=== PATIENT | female | born 1990 | race Caucasian/White ===

== ENCOUNTER 2018-01-11 23:00 | Inpatient (IN) | payer OTHER ==
[2018-01-11 23:42] LABS: APPEARANCE,URINE CLEAR; BILIRUBIN,URINE NEGATIVE (NEGATIVE); COLOR,URINE STRAW; GLUCOSE, URINE NEGATIVE (NEGATIVE); KETONES,URINE NEGATIVE (NEGATIVE); LEUKOCYTE ESTERASE,URINE NEGATIVE (NEGATIVE); NITRITE,URINE NEGATIVE (NEGATIVE); PROTEIN,URINE NEGATIVE (NEGATIVE); URINE SPECIFIC GRAVITY 1.005; UROBILINOGEN,URINE NEGATIVE mg/dL (<2.0)
[2018-01-11] MEDS ORDERED: RINGERS SOLUTION,LACTATED 1,000 ML IV PRN (23:52)
[2018-01-11] MEDS ORDERED: RINGERS SOLUTION,LACTATED 1,000 ML IV ONE (23:52)
[2018-01-11 23:57] LABS: ABSOLUTE LYMPHOCYTES (AUTO) 1.8 10^3/uL (0.5-4.7); ABSOLUTE MONOCYTES (AUTO) 0.9 10^3/uL (0.1-1.4); BASOPHILS % (AUTO) 0.2 % (0-2); EOSINOPHILS % (AUTO) 0.2 % (0-6); LYMPHOCYTES % (AUTO) 11.4 % (13-45); MEAN CORPUSCULAR HEMOGLOBIN 30.3 pg (27.0-33.4); MEAN CORPUSCULAR HGB CONC 34.3 g/dL (32.0-36.0); MEAN CORPUSCULAR VOLUME 88 fl (80-97); MONOCYTES % (AUTO) 5.9 % (3-13); PLATELET COUNT 188 10^3/uL (150-450); RED BLOOD COUNT 3.62 10^6/uL (3.72-5.28); RED CELL DISTRIBUTION WIDTH 15.1 % (11.5-14.0); SEGMENTED NEUTROPHILS % (AUTO) 82.3 % (42-78); TOTAL CELLS COUNTED % (AUTO) 100 %; WHITE BLOOD COUNT 15.8 10^3/uL (4.0-10.5)
[2018-01-12 00:01] LABS: URINE AMPHETAMINES SCREEN NEGATIVE; URINE BARBITURATES SCREEN NEGATIVE; URINE BENZODIAZEPINES SCREEN NEGATIVE; URINE COCAINE SCREEN NEGATIVE; URINE MARIJUANA (THC) SCREEN NEGATIVE; URINE METHADONE SCREEN NEGATIVE; URINE PHENCYCLIDINE SCREEN NEGATIVE
--- NOTE | 2018-01-12 02:08 | Admission Physical ---
Datetime Report Generated by CPN: 01/12/2018 02:07 CURRENT ADMISSION Chief Complaint: Uterine Contractions Indication for Induction: Not Applicable Admit Impression : Term, Intrauterine Admit Plan: Initiate Labor Protocol ALLERGIES Medication Allergies: No Medication Allergies: No Known Allergies (01/11/2018) Latex: No Latex Allergies OBSTETRICAL HISTORY EDC: 01/16/2018 00:00 : 2 Para: 1 Term: 1 : 1 SAB: 0 IAB: 0 Ectopic: 0 Livin Cesareans: 0 VBACs: 0 Multiple Births: 0 Gestational Diabetes: No Rh Sensitization: No Incompetent Cervix: No LES: No Infertility: No ART Treatment: No Uterine Anomaly: No IUGR: No Hx Previous C/S: No Macrosomia: No Hx Loss/Stillborn: No PIH: No Hx : No Placenta Previa/Abruption: No Depression/PP Depression: No PTL/PROM: No Post Hemorrhage: No Current Procedures: Ultrasound; NST Obstetrical History Comments: G1- 38 weeks baby girl 7lbs 5oz G2- current SEE RECORDS Alcohol: No Marijuana : No Cocaine: No Other Illicit Drugs: No Cigarettes: Never Smoker. [id number] MEDICAL HISTORY Diabetes: No Blood Transfusion: No Pulmonary Disease (Asthma, TB): No Breast Disease: No Hypertension: No Traveling Storekeeper Surgery: No Heart Disease: No Hosp/Surgery: No Autoimmune Disorder: No Anesthetic Complications: No Kidney Disease: No Abnormal Pap Smear: No Neuro/Epilepsy: No Psychiatric Disorders: No Other Medical Diseases: No Hepatitis/Liver Disease: No Significant Family History: No Varicosities/Phlebitis: No Trauma/Violence : No Thyroid Dysfunction: No INFECTIOUS HISTORY Gonorrhea: No Genital Herpes: No Chlamydia: No Tuberculosis: No Syphilis: No Hepatitis: No HIV/AIDS Exposure: No Rash or Viral Illness: No HPV: No PHYSICAL EXAM General: Normal HEENT: Normal Neurologic: Normal Thyroid: Normal Heart: Normal Lungs: Normal Breast: Deferred Back: Normal Abdomen: Normal Genitourinary Exam: Normal Extremities: Normal DTRs: Normal Pelvic Type: Adequate FETUS A EGA: 39.3 Monitoring: External US Decelerations: None PLANS FOR LABOR AND DELIVERY Labor and Delivery: None Pain Management: None Feeding Preference: Breast Benefit of Breast Feed Discussed: Yes Circumcision: Yes INFORMED CONSENT Signature: with User ID: [email or web address]
[2018-01-12] MEDS ORDERED: LIDOCAINE 1% INJ-PF (10 MG/ML) 30 ML SDV ONE (07:21)
[2018-01-12] MEDS ORDERED: MISOPROSTOL 0.2 MG TABLET ONE (07:21)
--- NOTE | 2018-01-12 08:33 | L&D Progress Notes ---
PROGRESS NOTES Datetime Report Generated by CPN: 01/12/2018 08:32 PROGRESS NOTE Impression: Arrest of Dilatation/Descent Procedures: Artificial ROM Plan: Continue Present Management Comment: pt doing well, denies need for pain mgmt agrees to AROM VAGINAL EXAM Dilatation: 6 Effacement: 70 Station: -1 MEMBRANES Membranes: Ruptured Amniotic Fluid Color: Meconium, Light FETUS A FHR - Baseline: 130 Monitoring: External US Variability: Moderate 6-25bpm Accelerations: 15X15 Decelerations: None : 39.4 SIGNATURE SIGNATURE: [id number];[id number] SIGNATURE: [id number] Assignment: Kathleen Lopez MD Signature: with User ID: [email or web address] : with User ID: [email or web address]
[2018-01-12] MEDS ORDERED: OXYTOCIN/NORMAL SALINE 20 UNIT/1,000 ML RTUINJ ONE (09:16)
--- NOTE | 2018-01-12 10:56 | Warning Signs in Babies ---
VOD Warning Signs Datetime Report Generated by [facility]: 01/12/2018 10:56 VOD#608 -Warning Signs in Babies: Viewed with Parent(s)/Family (01/11/2018 23:16:Dex Narayan RN)
[2018-01-12] MEDS ORDERED: BENZOCAINE/MENTHOL AEROSOL SPRAY 56 ML TOP PRN (12:32)
[2018-01-12] MEDS ORDERED: OXYTOCIN/NORMAL SALINE 20 UNIT/1,000 ML RTUINJ IV PRN (12:32)
[2018-01-12] MEDS ORDERED: DIBUCAINE 1% OINTMENT 28 GM TP PRN (12:32)
[2018-01-12] MEDS ORDERED: ZOLPIDEM TARTRATE 5 MG TABLET PO PRN (12:32)
[2018-01-12] MEDS ORDERED: MEASLES,MUMPS&RUBELLA VACC/PF 0.5 ML VIAL SUBCUT PRN (12:32)
[2018-01-12] MEDS ORDERED: DIPH/PERTUSS(ACELL)/TETANUS VAC/PF 0.5 ML SYR (>=10YO) IM PRN (12:32)
[2018-01-12] MEDS ORDERED: IBUPROFEN 800 MG TABLET ONE (13:36)
[2018-01-12] MEDS: IBUPROFEN 800 MG TABLET PO SCH ×2 (14:13→21:40)
[2018-01-12] MEDS: FERROUS SULFATE 325 MG TABLET PO SCH (17:38)
[2018-01-12] MEDS: DOCUSATE SODIUM 100 MG CAPSULE PO SCH (17:38)
[2018-01-13] MEDS: IBUPROFEN 800 MG TABLET PO SCH ×3 (06:19→21:22)
--- NOTE | 2018-01-13 07:46 | Delivery Summary ---
Del Sum A-C Datetime Report Generated by CPN: 01/13/2018 07:46 DELIVERY PERSONNEL DELIVERY PERSONNEL: [id number] Delivery Doctor:: Lauren Acosta CNM Labor and Delivery Nurse:: Quan Narayan RNart educator Nurse:: Doris Lopez RN Nursery Nurse:: Alem Ball RN Nursery Nurse:: Silvana Bashir RN Suit Attendant/LIBRARIAN HELPER: She Blancas CST Suit Attendant/LIBRARIAN HELPER: Kendyallen Anand, LIBRARIAN HELPER II MATERNAL INFORMATION Delivery Anesthesia: None Medications After Delivery: Pitocin Bolus-Please Comment Meds After Delivery Comment: Pitocin 20 units in1 L NS bolusing per order Maternal Complications: Precipitous Labor (<3hrs) Provider Comments: SVDVM over intact perineum, Lt labial lac extended to vaginal tissue 2*. CAT, shoulders/body delivered easily and placed on mothers abd. Spont cry. Cord clamped and cut per FOB, 3VC noted. Placenta spont via ayoub, FF imediately, bleeding stabilized. Mother and stable. LABOR SUMMARY EDC: 01/16/2018 00:00 No. Babies in Womb: 1 Attempted: No Labor Anesthesia: None LABOR INFORMATION Reason for Induction: Not Applicable Onset of Labor: 01/12/2018 08:19 Complete Dilatation: 01/12/2018 09:31 Oxytocin: N/A Group B Beta Strep: Negative Antibiotics # of Doses: 0 Antibiotics Time of Last Dose: N/A Name of Antibiotic Given: N/A Steroids Given: None Reason Steroids Not Administered: Not Applicable MEMBRANES Membranes Rupture Method: Artificial Rupture of Membranes: 01/12/2018 08:19 Length of Rupture (hr): 1.42 Amniotic Fluid Color: Light Meconium Amniotic Fluid Amount: Moderate Amniotic Fluid Odor: Normal STAGES OF LABOR Stage 1 hr: 1 Stage 1 min: 12 Stage 2 hr: 0 Stage 2 min: 13 Stage 3 hr: 0 Stage 3 min: 13 Total Time in Labor hr: 1 Total Time in Labor min: 38 VAGINAL DELIVERY Episiotomy: None Laceration #1: Vaginal Laceration Extension #1: Second Degree Other Laceration: Left Labial Laceration Repair: Yes Laceration Repair Note: 1% lidocaine and 3.0 chromic, repaired in usual fashion Sponge Count Correct: Yes Sharps Count Correct: Yes CSECTION DELIVERY Primary Indication: N/A Secondary Indication: N/A CSection Incidence: N/A Labor: N/A Elective: N/A CSection Incision: N/A BABY A INFORMATION Delivery Date/Time: 01/12/2018 09:44 Method of Delivery: Vaginal Born in Route : No : N/A Forceps: N/A Vacuum Extraction: N/A Shoulder Dystocia : No PRESENTATION/POSITION BABY A Presentation: Cephalic Cephalic Presentation: Vertex Vertex Position: Right Occipital Anterior Breech Presentation: N/A PLACENTA INFORMATION BABY A Placenta Delivery Time : 01/12/2018 09:57 Placenta Method of Delivery: Spontaneous Placenta Status: Delivered SCORES BABY A Heart Rate 1 min: >100 bpm Resp Effort 1 min: Good Cry Reflex Irritability 1 min: Cough or Sneeze or Pulls Away Muscle Tone 1 min: Active Motion Color 1 min: Blue/Pale Resuscitation Effort 1 min: Tactile Stimulation SCORE 1 MIN: 8 Heart Rate 5 min: >100 bpm Resp Effort 5 min: Good Cry Reflex Irritability 5 min: Cough or Sneeze or Pulls Away Muscle Tone 5 min: Active Motion Color 5 min: Body [place], Extremities Blue Resuscitation Effort 5 min: N/A SCORE 5 MIN: 9 INFANT INFORMATION BABY A Gestational Age at Delivery: 39.3 Gestational Status: Full Term- 39- 40.6 Weeks Infant Outcome : Liveborn Infant Condition : Stable Infant Sex: Male IDENTIFICATION BABY A Infant Verification Date/Time: 01/12/2018 10:43 ID Band Number: [id number] Mother's Name Verified: Yes Infant RN Verifying Infant: Quan Narayan RN Additional Verifying Personnel: Networked [employer] RN WEIGHT/LENGTH BABY A Infant Birthweight (gm): 3710 Weight (lb): 8 Weight (oz): 3 Length (in): 20.50 Length (cm): 52.07 CORD INFORMATION BABY A No. Cord Vessels: 3 Nuchal Cord : N/A Cord Blood Taken: Yes-For Storage (Mom's Blood type +) Infant Suction: Mouth ASSESSMENT BABY A Infant Complications: None Physical Findings at Delivery: Within Normal Limits Respirations: Appears Normal Skin to Skin: Yes Skin to Skin Time (min): 60 Mobile Sales Technician/ALS Called : No Care By: Keke Ball, RN, RMoreno Bashir, RN Transferred To: Remains with Mother BABY B INFORMATION : N/A SIGNATURES Assignment: Kathleen Lopez MD Signature: with User ID: [email or web address] : with User ID: [email or web address] : I was personally available for consultation and serving as supervising physician for the MLP. : I was personally available for consultation and serving as supervising physician for the MLP.
[2018-01-13 08:22] LABS: HEMATOCRIT 31.6 % (36.0-47.0); HEMOGLOBIN 10.7 g/dL (12.0-15.5); MEAN CORPUSCULAR HGB CONC 33.8 g/dL (32.0-36.0); MEAN CORPUSCULAR VOLUME 89 fl (80-97); PLATELET COUNT 191 10^3/uL (150-450); RED BLOOD COUNT 3.56 10^6/uL (3.72-5.28); RED CELL DISTRIBUTION WIDTH 14.7 % (11.5-14.0); WHITE BLOOD COUNT 16.8 10^3/uL (4.0-10.5)
[2018-01-13] MEDS: SENNOSIDES/DOCUSATE 8.6-50 MG 1 EACH TABLET PO SCH (09:02)
[2018-01-13] MEDS: FERROUS SULFATE 325 MG TABLET PO SCH ×2 (09:02→17:43)
[2018-01-13] MEDS: DOCUSATE SODIUM 100 MG CAPSULE PO SCH ×2 (09:02→17:42)
[2018-01-13] MEDS: PRENATAL VITAMIN W DHA CAPSULE PO SCH (09:02)
--- NOTE | 2018-01-13 10:01 | PDOC PROGRESS REPORT ---
Subjective-OB Progress Note for:: 01/13/18 Subjective: reports well, bleeding slowing, pain controlled with current meds ; denies needs Physical Exam (OB) Vital Signs: Temp Pulse Resp BP Pulse Ox 97.9 F 86 17 112/72 96 01/13/18 07:37 01/13/18 07:37 01/13/18 07:37 01/13/18 07:37 01/13/18 07:37 Intake & Output 01/12/18 01/13/18 01/14/18 06:59 06:59 06:59 Weight 79.3 kg - Abdomen Description: Soft Hernia Present: No Fundal Description: Firm, Midline Fundal Height: u/u - u/2 - Abdominal Tenderness: Nontender - Extremities Lower extremities: Brenda's sign - neg Calf: Normal, Nontender Objective-Diagnostic Laboratory: 01/13/18 08:13 01/13/18 08:13 WBC 16.8 H RBC 3.56 L Hgb 10.7 L Hct 31.6 L MCV 89 MCH 30.0 MCHC 33.8 RDW 14.7 H Plt Count 191 Assessment and Plan(PN) - Assessment and Plan (1) Vaginal delivery Is this a current diagnosis for this admission?: Yes - Time Spent with Patient Time with patient: Less than 15 minutes Medications reviewed and adjusted accordingly: Yes - Disposition Anticipated Discharge: Home Within: within 24 hours
[2018-01-13] MEDS: SERTRALINE HCL 50 MG TABLET PO SCH (14:20)
[2018-01-14] MEDS: IBUPROFEN 800 MG TABLET PO SCH ×2 (06:00→14:09)
[2018-01-14 08:00] VITALS: BP 118/73
--- NOTE | 2018-01-14 09:55 | PDOC DISCHARGE SUMMARY ---
Final Diagnosis Discharge Date: 01/14/18 - Final Diagnosis (1) Obstetrical laceration, second degree Is this a current diagnosis for this admission?: Yes (2) Vaginal delivery Is this a current diagnosis for this admission?: Yes Discharge Data - Discharge Medication Home Medications: Pnv,Calcium 72/Iron,Carb/Folic [ Plus Iron Tablet] 1 each PO DAILY 11/04 Calcium Carbonate [Calcium] 500 mg PO DAILY 01/11/18 Sertraline HCl [Zoloft 50 mg Tablet] 50 mg PO DAILY 01/11/18 Reason(s) for Admission: Onset of Labor Procedures: NST Intrapartum Procedure(s): Spontaneous Vaginal Delivery Complication(s): Laceration-Vaginal, Laceration-Labial Laceration-Degree: 2nd - Diagnosis Test Laboratory: Temp Pulse Resp BP Pulse Ox 98.3 F 81 18 118/73 99 01/14/18 07:52 01/14/18 07:52 01/14/18 07:52 01/14/18 07:52 01/14/18 07:52 01/11/18 01/11/18 01/13/18 23:09 23:43 08:13 RBC 3.62 L 3.56 L Hgb 11.0 L 10.7 L Hct 32.0 L 31.6 L Urine Opiates Screen NEGATIVE - Discharge information/Instructions Discharge Activity: Balance Activity w/Rest, Pelvic Rest Discharge Diet: Regular Disposition: HOME, SELF-CARE Follow up with: [facility] in: 4, Weeks
[2018-01-14] MEDS: DOCUSATE SODIUM 100 MG CAPSULE PO SCH (10:42)
[2018-01-14] MEDS: FERROUS SULFATE 325 MG TABLET PO SCH (10:42)
[2018-01-14] MEDS: SENNOSIDES/DOCUSATE 8.6-50 MG 1 EACH TABLET PO SCH (10:42)
[2018-01-14] MEDS: PRENATAL VITAMIN W DHA CAPSULE PO SCH (10:43)
[2018-01-14] MEDS: SERTRALINE HCL 50 MG TABLET PO SCH (13:41)
== END 2018-01-14 17:13 | disposition home or self-care (01) | DRG 775 ==
LOC: LC 23:00 → LR 23:30 → 2S 01-12 12:20
PROVIDERS: ADMIT Obstetrics & Gynecology; ATTEND Obstetrics & Gynecology
PROC: 10E0XZZ Delivery of Products of Conception, External Approach (ICD-10-PCS; principal; 2018-01-12)
PROC: 0KQM0ZZ Repair Perineum Muscle, Open Approach (ICD-10-PCS; 2018-01-12)
DX: O62.3 Precipitate labor (principal); O70.1 Second degree perineal laceration during delivery; Z3A.39 39 weeks gestation of pregnancy; Z37.0 Single live birth
CPT/HCPCS: 36415; 80307; 81005; 85025; 85027; 86592; 86850; 86900; 86901; J2590; J3490

== ENCOUNTER 2018-02-03 13:02 | Day surgery (SDC) | payer OTHER ==
[2018-02-03] MEDS ORDERED: CEFAZOLIN 1 GM/D5W RTU 1 GM/50 ML RTUPB IV PRN (13:24)
[2018-02-03] MEDS ORDERED: DEXTROSE 5%-LACTATED RINGERS 1,000 ML IV PRN (13:25)
[2018-02-03] MEDS ORDERED: FAMOTIDINE INJ/PF 20 MG/2 ML SDV IV ONE (14:07)
[2018-02-03] MEDS ORDERED: METOCLOPRAMIDE HCL INJ/PF 10 MG/2 ML SDV ONE (14:13)
[2018-02-03] MEDS ORDERED: LIDOCAINE 0.5% INJ-PF (5 MG/ML) 50 ML SDV ONE (14:51)
[2018-02-03] MEDS ORDERED: BUPIVACAINE HCL 0.25 % INJ/PF (2.5 MG/1 ML) 30 ML VIAL ONE (14:51)
[2018-02-03] MEDS ORDERED: LIDOCAINE 2% INJ-PF (20 MG/ML) 10 ML AMPUL ONE (15:06)
[2018-02-03] MEDS ORDERED: FENTANYL CITRATE INJ/PF 250 MCG/5 ML AMPULE ONE (15:06)
[2018-02-03] MEDS ORDERED: DEXAMETHASONE SOD PHOSPHATE INJ 4 MG/1 ML VIAL ONE (15:07)
[2018-02-03] MEDS ORDERED: ACETAMINOPHEN 1,000 MG/100 ML RTUPB IV ONE (15:07)
[2018-02-03] MEDS ORDERED: ONDANSETRON HCL INJ/PF 4 MG/2 ML SDV ONE (15:07)
[2018-02-03] MEDS ORDERED: PROPOFOL INJ 200 MG/20 ML VIAL IV ONE (15:07)
[2018-02-03] MEDS ORDERED: MIDAZOLAM 2 MG/2 ML INJ ONE (15:07)
[2018-02-03] MEDS ORDERED: SUCCINYLCHOLINE CHLORIDE INJ 200 MG/10 ML VIAL ONE (15:48)
[2018-02-03] MEDS ORDERED: KETOROLAC TROMETHAMINE INJ/PF 30 MG/1 ML SDV IV PRN (16:11)
[2018-02-03] MEDS ORDERED: KETOROLAC TROMETHAMINE 10 MG TABLET PO PRN (16:11)
[2018-02-03] MEDS ORDERED: ONDANSETRON HCL INJ/PF 4 MG/2 ML SDV IV PRN ×2 (16:11→16:26)
--- NOTE | 2018-02-03 16:16 | Operative Report ---
Operative Report DATE OF SURGERY: 02/03/18 PREOPERATIVE DIAGNOSIS: 1. Large left breast abscess. 2. breast POSTOPERATIVE DIAGNOSIS: Same OPERATION: Incisional drainage, left breast debridement, and packing SURGEON: LUDWIG YANEZ ANESTHESIA: GA TISSUE REMOVED OR ALTERED: Nonviable portions of left breast parenchyma COMPLICATIONS: None ESTIMATED BLOOD LOSS: 25 cc INTRAOPERATIVE FINDINGS: See below PROCEDURE: The patient was seen in the preop holding her then taken to the main operating room where general anesthesia was induced. Left arm was abducted, left breast prepped and draped sterile fashion Surgical plan surgical timeout conducted. A 3 cm incision was made in a curvilinear fashion approximately 8 cm from the nipple at the 3 o'clock position. We immediately got into pus which was cultured and sent for Gram stain sensitivity. We broke up a extensive amount of thick warty loculations occupying approximately 25-35% of the left breast going from the 1 o'clock position to the 5 o'clock position, extending to the retroareolar region. The infection extended down towards the chest wall, and laterally underneath the incision. Lauren clamps were used to break up the parenchyma. Several chunks of nonviable fatty tissue were debrided with pickups and electrocautery. Dissection was admixed with inflamed milk ducts and pockets of undrained milk. It with a liter or 2 of saline. I felt that the degree of debridement, and loculation opening was sufficient. Approximately 18 inches of Betadine soaked Kerlix was packed in the left breast. Dressings applied. Patient tolerated procedure well. She was taken to the recovery room after extubation in stable condition.
[2018-02-03] MEDS ORDERED: FENTANYL CITRATE INJ/PF 100 MCG/2 ML AMPUL IV PRN ×3 (16:26)
[2018-02-03] MEDS ORDERED: DIPHENHYDRAMINE HCL 50 MG/ML VIAL IV PRN (16:26)
[2018-02-03] MEDS ORDERED: OXYCODONE-ACETAMINOPHEN 5-325 MG TABLET PO PRN ×2 (16:26)
[2018-02-03] MEDS ORDERED: MORPHINE SULFATE 10 MG/ML INJ IV PRN (16:26)
[2018-02-03] MEDS ORDERED: MEPERIDINE HCL/PF INJ 25 MG/1 ML DISP.SYRIN IV PRN (16:26)
[2018-02-03] MEDS ORDERED: PROMETHAZINE HCL INJ 25 MG/1 ML VIAL IV PRN ×2 (16:26)
[2018-02-03] MEDS: FENTANYL CITRATE INJ/PF 100 MCG/2 ML AMPUL ONE ×2 (16:30→16:35)
[2018-02-03] MEDS ORDERED: KETOROLAC TROMETHAMINE INJ/PF 30 MG/1 ML SDV ONE (17:02)
[2018-02-04] MEDS: CEFAZOLIN 1 GM/D5W RTU 1 GM/50 ML RTUPB IV SCH ×4 (00:08→22:27)
[2018-02-04] MEDS ORDERED: HYDROMORPHONE HCL INJ/PF 2 MG/ML AMPULE ONE (07:47)
[2018-02-04] MEDS: HYDROMORPHONE HCL INJ/PF 2 MG/ML AMPULE IV PRN (07:49)
[2018-02-05] MEDS: CEFAZOLIN 1 GM/D5W RTU 1 GM/50 ML RTUPB IV SCH (05:34)
[2018-02-05] MEDS: HYDROMORPHONE HCL INJ/PF 2 MG/ML AMPULE IV PRN (06:59)
[2018-02-05 09:11] VITALS: BP 102/66
--- NOTE | 2018-02-05 18:45 | DISCHARGE SUMMARY E ---
Discharge Summary NAME: BLAYNE HEAD : 1990 AGE: 27Y ADMITTED: 02/03/2018 DISCHARGED: 02/05/2018 PROCEDURE DONE: Incision and drainage of large left breast abscess 02/03/2018. SURGEON: Marc Baum MD HOSPITAL COURSE: This 27-year-old female was admitted for abscess of the left breast. The patient is about 3 weeks ago. An incision and drainage of large left breast abscess was done by Dr. Baum on 02/03/2018 under general anesthesia. The patient did well postoperatively. Gram stain of the drainage showed gram positive cocci in clusters. No sensitivity was available on discharge. However, the patient was given a prescription for clindamycin 300 mg p.o. four times daily x10 days. Packing was changed on 02/04/2018 and also on the day of discharge, 02/05/2018, with Iodoform gauze. Packing will be removed in the surgical clinic by Mayra Guido NP, and followup final sensitivity study and culture. The patient is doing well on discharge. DICTATING PHYSICIAN: JASON KOLB M.D. [id number] PHY#: [id number] ID: [id number] JOB#: [id number] ACCT: [id number] cc:Marilee CADE M.D. >
== END 2018-02-05 09:25 | disposition home or self-care (01) ==
LOC: OROUT 13:02 → 2N 17:23 → OROUT 02-05 09:25
PROVIDERS: ATTEND Surgery
DX: N61.1 Abscess of the breast and nipple (principal); Z39.2 Encounter for routine postpartum follow-up; Z39.1 Encounter for care and examination of lactating mother; Z79.899 Other long term (current) drug therapy
CPT/HCPCS: 87070; 87205; 87075; 87077; 87186; 11042; L8000 ×2; J2250; J0690 ×3; J1100; J3010 ×2; J1885 ×2; J2765; J1170 ×2; J0330; J2405; J3490 ×2; J2704; S0028; J0131; 400

== ENCOUNTER 2019-09-21 10:17 | Inpatient (IN) | payer OTHER ==
[2019-09-21 10:46] LABS: APPEARANCE,URINE CLOUDY; BILIRUBIN,URINE NEGATIVE (NEGATIVE); COLOR,URINE YELLOW; GLUCOSE, URINE NEGATIVE (NEGATIVE); KETONES,URINE NEGATIVE (NEGATIVE); LEUKOCYTE ESTERASE,URINE NEGATIVE (NEGATIVE); NITRITE,URINE NEGATIVE (NEGATIVE); PROTEIN,URINE NEGATIVE (NEGATIVE); URINE SPECIFIC GRAVITY 1.014; UROBILINOGEN,URINE NEGATIVE mg/dL (<2.0)
[2019-09-21] MEDS ORDERED: RINGERS SOLUTION,LACTATED 1,000 ML IV PRN (10:52)
[2019-09-21] MEDS ORDERED: RINGERS SOLUTION,LACTATED 1,000 ML IV ONE (10:52)
[2019-09-21 11:09] LABS: URINE AMPHETAMINES SCREEN NEGATIVE; URINE BARBITURATES SCREEN NEGATIVE; URINE BENZODIAZEPINES SCREEN NEGATIVE; URINE COCAINE SCREEN NEGATIVE; URINE MARIJUANA (THC) SCREEN NEGATIVE; URINE METHADONE SCREEN NEGATIVE; URINE PHENCYCLIDINE SCREEN NEGATIVE
[2019-09-21 11:19] LABS: ABSOLUTE LYMPHOCYTES (AUTO) 1.6 10^3/uL (0.5-4.7); ABSOLUTE MONOCYTES (AUTO) 0.7 10^3/uL (0.1-1.4); BASOPHILS % (AUTO) 0.2 % (0-2); EOSINOPHILS % (AUTO) 0.1 % (0-6); HEMATOCRIT 31.1 % (36.0-47.0); HEMOGLOBIN 10.6 g/dL (12.0-15.5); LYMPHOCYTES % (AUTO) 11.1 % (13-45); MEAN CORPUSCULAR HEMOGLOBIN 29.3 pg (27.0-33.4); MEAN CORPUSCULAR HGB CONC 34.2 g/dL (32.0-36.0); MEAN CORPUSCULAR VOLUME 86 fl (80-97); MONOCYTES % (AUTO) 4.7 % (3-13); PLATELET COUNT 196 10^3/uL (150-450); RED BLOOD COUNT 3.63 10^6/uL (3.72-5.28); RED CELL DISTRIBUTION WIDTH 15.1 % (11.5-14.0); SEGMENTED NEUTROPHILS % (AUTO) 83.9 % (42-78); TOTAL CELLS COUNTED % (AUTO) 100 %; WHITE BLOOD COUNT 14.3 10^3/uL (4.0-10.5)
[2019-09-21] MEDS ORDERED: OXYTOCIN/NORMAL SALINE 20 UNIT/1,000 ML RTUINJ IV PRN ×2 (15:38→17:56)
[2019-09-21] MEDS ORDERED: LIDOCAINE 1% INJ-PF (10 MG/ML) 30 ML SDV ONE (15:41)
[2019-09-21] MEDS ORDERED: MISOPROSTOL 0.2 MG TABLET ONE (15:41)
[2019-09-21] MEDS ORDERED: OXYTOCIN 10 UNIT/ML VIAL ONE (15:41)
[2019-09-21] MEDS ORDERED: OXYTOCIN/NORMAL SALINE 20 UNIT/1,000 ML RTUINJ ONE (15:41)
--- NOTE | 2019-09-21 17:32 | Admission Physical ---
Datetime Report Generated by CPN: 09/21/2019 17:32 CURRENT ADMISSION Chief Complaint: Uterine Contractions Indication for Induction: Not Applicable Admit Impression : Term, Intrauterine ; Active Labor; Intact Membranes Admit Plan: Admit to Unit; Initiate Labor Protocol ALLERGIES Medication Allergies: No Medication Allergies: No Known Allergies (09/21/2019) Latex: No Latex Allergies Food Allergies: none Environmental Allergies: none OBSTETRICAL HISTORY EDC: 09/26/2019 00:00 : 3 Para: 2 Term: 2 : 0 SAB: 0 IAB: 0 Ectopic: 0 Livin Cesareans: 0 VBACs: 0 Multiple Births: 0 Gestational Diabetes: No Rh Sensitization: No Incompetent Cervix: No LES: No Infertility: No ART Treatment: No Uterine Anomaly: No IUGR: No Hx Previous C/S: No Macrosomia: No Hx Loss/Stillborn: No PIH: No Hx : No Placenta Previa/Abruption: No Depression/PP Depression: Yes PTL/PROM: No Post Hemorrhage: No Current Procedures: Ultrasound SEE RECORDS Alcohol: No Marijuana : No Cocaine: No Other Illicit Drugs: No Cigarettes: Never Smoker. [id number] MEDICAL HISTORY Diabetes: No Blood Transfusion: No Pulmonary Disease (Asthma, TB): No Breast Disease: Yes Hypertension: No Graduate Nurse Surgery: No Heart Disease: No Hosp/Surgery: Yes Autoimmune Disorder: No Anesthetic Complications: No Kidney Disease: No Abnormal Pap Smear: No Neuro/Epilepsy: No Psychiatric Disorders: No Other Medical Diseases: No Hepatitis/Liver Disease: No Significant Family History: No Varicosities/Phlebitis: No Trauma/Violence : No Thyroid Dysfunction: No Medical History Comments: Depression Breast absess surgery- Feb 2018 INFECTIOUS HISTORY Gonorrhea: No Genital Herpes: No Chlamydia: No Tuberculosis: No Syphilis: No Hepatitis: No HIV/AIDS Exposure: No Rash or Viral Illness: No HPV: No PHYSICAL EXAM General: Normal HEENT: Normal Neurologic: Normal Thyroid: Deferred Heart: Normal Lungs: Normal Breast: Deferred Back: Normal Abdomen: Normal Genitourinary Exam: Normal Extremities: Normal DTRs: Normal Pelvic Type: Adequate Vital Signs: Reviewed VAGINAL EXAM Dilatation: 6 Effacement: 80 Station: -1 Contraction Comments: q 5-6 MEMBRANES Membranes: Intact FETUS A EGA: 39.2 Monitoring: External US FHR- Baseline: 145 Variability: Moderate 6-25bpm Accelerations: 15X15 Decelerations: None FHR Category: Category I Presentation: Vertex Admit Comment: 29yo at 39+2ega presents for active labor and cvx 6cm. GBS negative. H/o Depression. merchandise planner placed. o/w uncomplicated. Doing well. Admit and augment if needed. PLANS FOR LABOR AND DELIVERY Labor and Delivery: None Pain Management: Natural Feeding Preference: Breast Benefit of Breast Feed Discussed: Yes Circumcision: N/A INFORMED CONSENT Informed Consent Obtained: Vaginal Delivery; Risks, Benefits and Alternatives Discussed Signature: with User ID: [email or web address]
[2019-09-21] MEDS ORDERED: ACETAMINOPHEN WITH CODEINE #3 TABLET PO PRN ×2 (17:56)
[2019-09-21] MEDS ORDERED: MAGNESIUM HYDROXIDE SUSP 30 ML UDCUP PO PRN (17:56)
[2019-09-21] MEDS ORDERED: DIPH/PERTUSS(ACELL)/TETANUS VAC/PF 0.5 ML SYR (>=10YO) IM PRN (17:56)
[2019-09-21] MEDS ORDERED: NA PHOS,M-B/NA PHOS,DI-BA (ADULT) 133 ML ENEMA PR PRN (17:56)
[2019-09-21] MEDS ORDERED: BENZOCAINE/MENTHOL AEROSOL SPRAY 56 ML TOP PRN (17:56)
[2019-09-21] MEDS ORDERED: GLYCERIN/WITCH HAZEL LEAF 1 EACH MED..WIPE TP PRN (17:56)
[2019-09-21] MEDS ORDERED: PROMETHAZINE HCL 25 MG TABLET PO PRN (17:56)
[2019-09-21] MEDS ORDERED: MEASLES,MUMPS&RUBELLA VACC/PF 0.5 ML VIAL SUBCUT PRN (17:56)
[2019-09-21] MEDS ORDERED: ZOLPIDEM TARTRATE 5 MG TABLET PO PRN (17:56)
[2019-09-21] MEDS ORDERED: PSEUDOEPHEDRINE HCL 30 MG TABLET PO PRN (17:56)
[2019-09-21] MEDS ORDERED: ACETAMINOPHEN 325 MG TABLET PO PRN (17:56)
[2019-09-21] MEDS ORDERED: DIPHENHYDRAMINE HCL 25 MG CAPSULE PO PRN (17:56)
[2019-09-21] MEDS ORDERED: DIBUCAINE 1% OINTMENT 28 GM TP PRN (17:56)
[2019-09-21] MEDS ORDERED: PROMETHAZINE HCL INJ 25 MG/1 ML VIAL IV PRN (17:56)
[2019-09-21] MEDS ORDERED: PROMETHAZINE HCL 25 MG SUPP.RECT PR PRN (17:56)
--- NOTE | 2019-09-21 18:37 | Delivery Summary ---
Del Sum A-C Datetime Report Generated by CPN: 09/21/2019 18:37 DELIVERY PERSONNEL DELIVERY PERSONNEL: [id number] Delivery Doctor:: Yenni Arzate CNM Labor and Delivery Nurse:: Brooke Peterson RNsupervisor hanging and trimming Nurse:: Sadi Alvarenga RN Automation Machine Operator:: Fabiola Anderson RN Marklogic Developer/ASSOCIATE PROFESSOR OF LITERATURE: She Blancas, CRISTINO Marklogic Developer/ASSOCIATE PROFESSOR OF LITERATURE: ZToler,ANIMAL SURGEON MATERNAL INFORMATION Delivery Anesthesia: None Medications After Delivery: Pitocin Bolus-Please Comment; Pitocin Drip 20 Units/1000ml NSS Meds After Delivery Comment: 20 units/1000ml NS Estimated Blood Loss (ml): 200 Delivery QBL Comment: Unable to obtain QBL Maternal Complications: None Provider Comments: Called to Room 4-patient calling out with uc's and pushing uncontrollably. Membranes intact and bulging. AROM w clear fluid. viable infant in vertex OA to YOLIE en caul at 1701. Membranes removed from face. Nuchal cord x1, reduced. Spontaneous respirations and cry. Apgars 8-9. 3 vessel cord. Cord clamped x2, after 2 min delay, then cut by FOB. Placenta, membranes, and cord expelled at 1710, French presentation, intact. Repair of left labia into vagin repaired as above. LABOR SUMMARY EDC: 09/26/2019 00:00 No. Babies in Womb: 1 Attempted: No Labor Anesthesia: None LABOR INFORMATION Reason for Induction: Not Applicable Onset of Labor: 09/21/2019 10:50 Complete Dilatation: 09/21/2019 16:56 Oxytocin: Augmentation Group B Beta Strep: Negative Antibiotics # of Doses: n/a Antibiotics Time of Last Dose: n/a Name of Antibiotic Given: n/a Steroids Given: None Reason Steroids Not Administered: Not Applicable Other Reason Not Administered: n/a MEMBRANES Membranes Rupture Method: Artificial Rupture of Membranes: 09/21/2019 17:00 Length of Rupture (hr): 0.02 Amniotic Fluid Color: Clear Amniotic Fluid Amount: Small Amniotic Fluid Odor: Normal STAGES OF LABOR Stage 1 hr: 6 Stage 1 min: 6 Stage 2 hr: 0 Stage 2 min: 5 Stage 3 hr: 0 Stage 3 min: 9 Total Time in Labor hr: 6 Total Time in Labor min: 20 VAGINAL DELIVERY Episiotomy: None Laceration #1: Vaginal Laceration Extension #1: First Degree Other Laceration: Left labial Laceration Repair: Yes Laceration Repair Note: Repaired with 3-0 Chromic with interrupted stitches Sponge Count Correct: N/A Sharps Count Correct: Yes CSECTION DELIVERY Uterine Closure: N/A BABY A INFORMATION Infant Delivery Date/Time: 09/21/2019 17:01 Method of Delivery: Vaginal Nurse Controlled Delivery: No Born in Route : No : N/A Forceps: N/A Vacuum Extraction: N/A Shoulder Dystocia : No PRESENTATION/POSITION BABY A Presentation: Cephalic Cephalic Presentation: Vertex Vertex Position: Right Occipital Anterior Breech Presentation: N/A PLACENTA INFORMATION BABY A Placenta Delivery Time : 09/21/2019 17:10 Placenta Method of Delivery: Spontaneous Placenta Status: Delivered SCORES BABY A Heart Rate 1 min: >100 bpm Resp Effort 1 min: Good Cry Reflex Irritability 1 min: Cough or Sneeze or Pulls Away Muscle Tone 1 min: Active Motion Color 1 min: Blue/Pale Resuscitation Effort 1 min: Tactile Stimulation SCORE 1 MIN: 8 Heart Rate 5 min: >100 bpm Resp Effort 5 min: Good Cry Reflex Irritability 5 min: Cough or Sneeze or Pulls Away Muscle Tone 5 min: Active Motion Color 5 min: Body [place], Extremities Blue Resuscitation Effort 5 min: Tactile Stimulation SCORE 5 MIN: 9 INFORMATION BABY A Outcome : Liveborn Condition : Stable Sex: Female IDENTIFICATION BABY A ID Band Number: [id number] Mother's Name Verified: Yes Infant RN Verifying Infant: AFeuston, RN Additional Verifying Personnel: E. Hill, ANIMAL SURGEON WEIGHT/LENGTH BABY A Birthweight (gm): 3229 Weight (lb): 7 Weight (oz): 2 Infant Length (in): 20.00 Infant Length (cm): 50.80 CORD INFORMATION BABY A No. Cord Vessels: 3 Nuchal Cord : Around Neck x1, Loose Cord Blood Taken: Yes-For Storage (Mom's Blood type +) Suction: None ASSESSMENT BABY A Skin to Skin: Yes BABY B INFORMATION : N/A SIGNATURES Assignment: Georgiana Fernandez MD Signature: with User ID: [email or web address] : with User ID: Mary [email or web address] : I personally evaluated and examined the patient in conjunction with the MLP and agree with the assessment, treatment plan and disposition.
[2019-09-21] MEDS: IBUPROFEN 800 MG TABLET PO SCH (22:19)
[2019-09-22] MEDS: FAMOTIDINE 20 MG TABLET PO SCH ×3 (03:36→22:33)
[2019-09-22] MEDS: IBUPROFEN 800 MG TABLET PO SCH ×3 (05:33→22:34)
[2019-09-22 06:34] LABS: HEMATOCRIT 34.5 % (36.0-47.0); HEMOGLOBIN 11.3 g/dL (12.0-15.5); MEAN CORPUSCULAR HEMOGLOBIN 28.6 pg (27.0-33.4); MEAN CORPUSCULAR HGB CONC 32.8 g/dL (32.0-36.0); MEAN CORPUSCULAR VOLUME 87 fl (80-97); PLATELET COUNT 233 10^3/uL (150-450); RED BLOOD COUNT 3.96 10^6/uL (3.72-5.28); RED CELL DISTRIBUTION WIDTH 15.4 % (11.5-14.0); WHITE BLOOD COUNT 21.2 10^3/uL (4.0-10.5)
[2019-09-22] MEDS: SERTRALINE HCL 50 MG TABLET PO SCH (09:31)
[2019-09-22] MEDS: PRENATAL VITAMIN W DHA CAPSULE PO SCH (09:31)
[2019-09-22] MEDS: DOCUSATE SODIUM 100 MG CAPSULE PO SCH ×3 (09:31→17:32)
[2019-09-22] MEDS: FERROUS SULFATE 325 MG TABLET PO SCH ×3 (09:32→17:32)
[2019-09-22] MEDS: SENNOSIDES/DOCUSATE 8.6-50 MG 1 EACH TABLET PO SCH (09:32)
--- NOTE | 2019-09-22 12:29 | PDOC PROGRESS REPORT ---
Subjective-OB Progress Note for:: 09/22/19 Subjective: Pt doing well, no concerns. She reports light bleeding, reg diet and voiding without difficulty. Physical Exam (OB) Vital Signs: Temp Pulse Resp BP Pulse Ox 97.9 F 84 16 116/77 99 09/22/19 08:17 09/22/19 08:17 09/22/19 08:17 09/22/19 08:17 09/22/19 08:17 Intake & Output 09/21/19 09/22/19 09/23/19 06:59 06:59 06:59 Weight 80.2 kg - Lochia Lochia Amount: Small 10-25 ml Lochia Color: Rubra/Red - Abdomen Description: Soft Hernia Present: No Fundal Description: Firm, Midline Fundal Height: u/u - u/2 Objective-Diagnostic Laboratory: 09/22/19 06:13 09/22/19 06:13 WBC 21.2 H RBC 3.96 Hgb 11.3 L Hct 34.5 L MCV 87 MCH 28.6 MCHC 32.8 RDW 15.4 H Plt Count 233 Assessment and Plan(PN) - Assessment and Plan (1) Obstetric labial laceration, delivered, current hospitalization Is this a current diagnosis for this admission?: Yes (2) Obstetrical laceration, first degree Is this a current diagnosis for this admission?: Yes (3) Vaginal delivery Is this a current diagnosis for this admission?: Yes - Time Spent with Patient Time with patient: Less than 15 minutes Medications reviewed and adjusted accordingly: Yes - Disposition Anticipated Discharge: Home Within: within 24 hours
[2019-09-23] MEDS: IBUPROFEN 800 MG TABLET PO SCH (05:50)
--- NOTE | 2019-09-23 09:20 | PDOC DISCHARGE SUMMARY ---
Impression - Admit/DC Date/PCP Admission Date/Primary Care Provider: 09/21/19 11:01 BALDEV CANO MD Discharge Date: 09/23/19 - Discharge Diagnosis (1) Obstetric labial laceration, delivered, current hospitalization Is this a current diagnosis for this admission?: Yes (2) Obstetrical laceration, first degree Is this a current diagnosis for this admission?: Yes (3) Vaginal delivery Is this a current diagnosis for this admission?: Yes - Additional Information Resuscitation Status: Full Code Discharge Diet: Regular Discharge Activity: Balance Activity w/Rest, Pelvic Rest Referrals: BALDEV CANO MD [Primary Care Provider] - Prescriptions: Ibuprofen [Motrin 800 mg Tablet] 800 mg PO Q8HP PRN #60 tablet PRN Reason: Home Medications: Pnv,Calcium 72/Iron,Carb/Folic [ Plus Iron Tablet] 1 each PO DAILY 11/04/12 Sertraline HCl [Zoloft 50 mg Tablet] 50 mg PO DAILY 01/11/18 Sertraline HCl [Zoloft] 25 mg PO DAILY 09/21/19 Ibuprofen [Motrin 800 mg Tablet] 800 mg PO Q8HP PRN #60 tablet 09/23/19 HPI Gestational Age: 39.2 Reason(s) for Admission: Onset of Labor Procedures: [place] Intrapartum Procedure(s): Spontaneous Vaginal Delivery Complication(s): Laceration-Labial Laceration-Degree: 1st Results Laboratory Results: WBC 21.2 10^3/uL (4.0-10.5) H 09/22/19 06:13 RBC 3.96 10^6/uL (3.72-5.28) 09/22/19 06:13 Hgb 11.3 g/dL (12.0-15.5) L 09/22/19 06:13 Hct 34.5 % (36.0-47.0) L 09/22/19 06:13 MCV 87 fl (80-97) 09/22/19 06:13 MCH 28.6 pg (27.0-33.4) 09/22/19 06:13 MCHC 32.8 g/dL (32.0-36.0) 09/22/19 06:13 RDW 15.4 % (11.5-14.0) H 09/22/19 06:13 Plt Count 233 10^3/uL (150-450) 09/22/19 06:13 Lymph % (Auto) 11.1 % (13-45) L 09/21/19 11:08 [place] % (Auto) 4.7 % (3-13) 09/21/19 11:08 Eos % (Auto) 0.1 % (0-6) 09/21/19 11:08 Baso % (Auto) 0.2 % (0-2) 09/21/19 11:08 Absolute Neuts (auto) 12.0 10^3/uL (1.7-8.2) H 09/21/19 11:08 Absolute Lymphs (auto) 1.6 10^3/uL (0.5-4.7) 09/21/19 11:08 Absolute Monos (auto) 0.7 10^3/uL (0.1-1.4) 09/21/19 11:08 Absolute Eos (auto) 0.0 10^3/uL (0.0-0.6) 09/21/19 11:08 Absolute Basos (auto) 0.0 10^3/uL (0.0-0.2) 09/21/19 11:08 Seg Neutrophils % 83.9 % (42-78) H 09/21/19 11:08 Urine Color YELLOW 09/21/19 10:30 Urine Appearance CLOUDY 09/21/19 10:30 Urine pH 7.0 (5.0-9.0) 09/21/19 10:30 Ur Specific [place] 1.014 09/21/19 10:30 Urine Protein NEGATIVE mg/dL (NEGATIVE) 09/21/19 10:30 Urine Glucose (UA) NEGATIVE mg/dL (NEGATIVE) 09/21/19 10:30 Urine Ketones NEGATIVE mg/dL (NEGATIVE) 09/21/19 10:30 Urine Blood NEGATIVE (NEGATIVE) 09/21/19 10:30 Urine Nitrite NEGATIVE (NEGATIVE) 09/21/19 10:30 Urine Bilirubin NEGATIVE (NEGATIVE) 09/21/19 10:30 Urine Urobilinogen NEGATIVE mg/dL (<2.0) 09/21/19 10:30 Ur Leukocyte Esterase NEGATIVE (NEGATIVE) 09/21/19 10:30 Urine Ascorbic Acid NEGATIVE (NEGATIVE) 09/21/19 10:30 Urine Opiates Screen NEGATIVE 09/21/19 10:30 Urine Methadone Screen NEGATIVE 09/21/19 10:30 Ur Barbiturates Screen NEGATIVE 09/21/19 10:30 Ur Phencyclidine Scrn NEGATIVE 09/21/19 10:30 Ur Amphetamines Screen NEGATIVE 09/21/19 10:30 U Benzodiazepines Scrn NEGATIVE 09/21/19 10:30 Urine Cocaine Screen NEGATIVE 09/21/19 10:30 U Marijuana (THC) Screen NEGATIVE 09/21/19 10:30 RPR NONREACTIVE (NONREACTIVE) 09/21/19 11:08 Blood Type A POSITIVE 09/21/19 11:08 Antibody Screen NEGATIVE 09/21/19 11:08 Plan Plan of Treatment: f/u at [facility] 4 wks Time Spent: Less than 30 Minutes
[2019-09-23] MEDS: PRENATAL VITAMIN W DHA CAPSULE PO SCH (10:11)
[2019-09-23] MEDS: SERTRALINE HCL 50 MG TABLET PO SCH (10:12)
[2019-09-23] MEDS: DOCUSATE SODIUM 100 MG CAPSULE PO SCH (10:12)
[2019-09-23] MEDS: SENNOSIDES/DOCUSATE 8.6-50 MG 1 EACH TABLET PO SCH (10:12)
[2019-09-23] MEDS: FERROUS SULFATE 325 MG TABLET PO SCH (10:12)
[2019-09-23] MEDS: FAMOTIDINE 20 MG TABLET PO SCH (10:28)
[2019-09-23 13:06] VITALS: BP 113/73
== END 2019-09-23 14:55 | disposition home or self-care (01) | DRG 807 ==
LOC: LC 10:17 → LR 11:01 → 2S 20:13
PROVIDERS: ADMIT Student in an Organized Health Care Education/Training Program; ATTEND Student in an Organized Health Care Education/Training Program
PROC: 10E0XZZ Delivery of Products of Conception, External Approach (ICD-10-PCS; principal; 2019-09-21)
PROC: 0HQ9XZZ Repair Perineum Skin, External Approach (ICD-10-PCS; 2019-09-21)
DX: O69.81X0 Labor and delivery complicated by cord around neck, without compression, not applicable or unspecified (principal); Z37.0 Single live birth; O70.0 First degree perineal laceration during delivery; O99.344 Other mental disorders complicating childbirth; F32.9 Major depressive disorder, single episode, unspecified; Z3A.39 39 weeks gestation of pregnancy
CPT/HCPCS: 36415; 80307; 81005; 85025; 85027; 86592; 86850; 86900; 86901; 88307; J2590; J3490